=== PATIENT | female | born 1965 | race Caucasian/White ===

== ENCOUNTER 2019-04-07 10:12 | Emergency (ER) | payer BC ==
[~2019-04-07] VITALS: Ht 157.5 cm; Wt 78.0 kg
[2019-04-07 10:21] VITALS: Ht 157.5 cm; Wt 78.0 kg
[2019-04-07] MEDS ORDERED: SOD CHLORIDE 0.9% 1,000 ML IV STA (10:23)
--- NOTE | 2019-04-07 10:33 | ERD ---
ER Documentation Chief Complaint Chief Complaint LT SIDE NECK PAIN X 5 DAYS , ABD PAIN TODAY , FELT LIKE FAINTING HPI 54-year-old female who has a history of borderline hypertension who was recently asked to start hypertensive medications but has not. Patient presents with approximately 5 days of symptoms of left trapezius pain. She describes it as dull, constant and certainly worse when sitting down for a longer period of time . Patient also notes some mild numbness and tingling possibly in the left upper extremity though this is subtle. She denies any prior chest pressure, exertional symptoms shortness of breath or pleuritic pain. She denies any mid back pain or ripping or tearing sensation. However today she felt mildly nauseated and felt like fainting. She presents to the emergency room via EMS. ROS All systems reviewed and are negative except as per history of present illness. Medications Home Meds Active Scripts Ibuprofen* (Motrin*) 800 Mg Tab, 800 MG PO Q6H PRN for PAIN AND OR ELEVATED TEMP, #30 TAB Prov:DAVID PURDY MD 04/07/19 Allergies Allergies: Coded Allergies: No Known Allergy (Unverified , 04/07/19) PMhx/Soc History of Surgery: No Anesthesia Reaction: No Hx Neurological Disorder: No Hx Respiratory Disorders: No Hx Cardiac Disorders: Yes (HTN) Hx Psychiatric Problems: No Hx Miscellaneous Medical Probl: No Hx Alcohol Use: No Hx Substance Use: No Hx Tobacco Use: No Smoking Status: Never smoker FmHx Family History: No diabetes, No coronary disease Physical Exam Vitals Vital Signs Date Temp Pulse Resp B/P (MAP) Pulse Ox O2 O2 Flow FiO2 Time Delivery Rate 04/07/19 97.7 63 15 150/75 100 Room Air 11:32 (100) 04/07/19 97.8 56 18 173/76 99 10:21 (108) Physical Exam General: Well developed, well nourished, no acute distress Head: Normocephalic, atraumatic. Eyes: Pupils equally reactive, EOM intact ENT: Moist mucous membranes Neck: Supple, no lymphadenopathy Respiratory: Lungs clear bilaterally, no distress Cardiovascular: RRR, no murmurs, rubs, or gallops Abdominal: Soft, non-tender, non-distended, no peritoneal signs : Deferred MSK: No edema, no unilateral swelling, 5/5 strength, no pulse deficits Neurologic: Alert and oriented, moving all extremities, normal speech, no focal weakness, no cerebellar signs Skin: No rash Psych: Normal mood Result Diagram: 04/07/19 1024 04/07/19 1024 Results 24 hrs Laboratory Tests Test 04/07/19 10:24 White Blood Count 6.5 10^3/ul Red Blood Count 4.43 10^6/ul Hemoglobin 13.4 g/dl Hematocrit 40.0 % Mean Corpuscular Volume 90.3 fl Mean Corpuscular Hemoglobin 30.2 pg Mean Corpuscular Hemoglobin Concent 33.5 g/dl Red Cell Distribution Width 11.4 % Platelet Count 300 10^3/UL Mean Platelet Volume 8.9 fl Immature Granulocytes % 0.300 % Neutrophils % 59.6 % Lymphocytes % 27.9 % Monocytes % 4.5 % Eosinophils % 7.1 % Basophils % 0.6 % Nucleated Red Blood Cells % 0.0 /100WBC Immature Granulocytes # 0.020 10^3/ul Neutrophils # 3.9 10^3/ul Lymphocytes # 1.8 10^3/ul Monocytes # 0.3 10^3/ul Eosinophils # 0.5 10^3/ul Basophils # 0.0 10^3/ul Nucleated Red Blood Cells # 0.0 10^3/ul Prothrombin Time 12.1 Sec Prothrombin Time Ratio 0.9 INR International Normalized Ratio 0.89 Activated Partial Thromboplast Time 26.4 Sec Sodium Level 142 mmol/L Potassium Level 3.4 mmol/L Chloride Level 106 mmol/L Carbon Dioxide Level 29 mmol/L Anion Gap 7 Blood Urea Nitrogen 14 mg/dl Creatinine 0.88 mg/dl Est Glomerular Filtrat Rate mL/min > 60 mL/min Glucose Level 140 mg/dl Calcium Level 9.2 mg/dl Troponin I < 0.012 ng/ml Current Medications Medications Dose Sig/Titus Start Time Status Last (Trade) Ordered Route PRN Stop Time Admin Dose Reason Admin Sodium 1,000 ml @ Q1H STAT 04/07/19 DC 04/07/19 Chloride 1,000 mls/hr IV 10:23 10:32 04/07/19 11:22 IV Flush 10 ml STK-MED 04/07/19 DC 04/07/19 (NS 10 ml) ONCE .ROUTE 11:11 11:27 04/07/19 11:12 Sodium 100 ml @ ud STK-MED 04/07/19 DC 04/07/19 Chloride ONCE .ROUTE 11:11 11:27 04/07/19 11:12 Iohexol 100 ml @ [facility] 04/07/19 DC 04/07/19 ONCE .ROUTE 11:11 11:27 04/07/19 11:12 Procedures/MDM EKG, MONITORS, & DIAGNOSTIC IMAGING: EKG: I reviewed and interpreted a 12-lead EKG. Rhythm: Normal sinus rhythm ST Changes: No contiguous ST segment elevations T waves: No contiguous T wave inversions Impression: No evidence of acute cardiac ischemia Chest x-ray: I reviewed and interpreted a 1 view of the chest Mediastinum: No enlargement Cardiac silhouette: No cardiomegaly Airspace: Clear lung de la fuente bilaterally without evidence of pneumothorax Bones: No evidence of fracture CTA chest: IMPRESSION: 1. No evidence of aortic dissection or pulmonary embolism. 2. There is a 1.3 cm nodule in the inferior right thyroid. 3. 2.2 cm heterogeneously enhancing lesion in the right lobe of the liver that likely represents a hemangioma. 3.1 cm low density lesion more superiorly in the right lobe of the liver that likely represents a cyst. Hepatic steatosis. 4. Otherwise, no significant abnormalities are identified. LAB INTERPRETATION: I reviewed the laboratory testing and it shows no evidence of acute process MEDICAL DECISION MAKING: The patient's presentation and clinical exam seems to be very consistent with musculoskeletal etiology. The patient notes significant social stressors. The patient's symptoms are worse when sitting for prolonged periods of time. However the patient also has hypertension and mild paresthesia component. Dissection must be considered though seems unlikely. I do not believe this is consistent with acute coronary syndrome though EKG and troponin would be reasonable. Given 5 days of symptoms this should be appropriate. The patient has no exertional symptoms and better alternative diagnosis. ER COURSE: * The patient remains well-appearing and asymptomatic in the emergency room setting. CT of the chest is negative. Nonspecific nodules, outpatient follow-up is appropriate. Imaging pertinent offer her follow-up benefit * The patient is not having any chest pain. I do not believe this is consistent with anginal equivalent. No exertional symptoms. Repeat troponin is unnecessary at this time. * Return precautions were discussed and understood. The patient can be safely discharged. CONSULTATION: None DISPOSITION PLAN: The patient does not have an identifiable emergent medical condition that warrants inpatient hospitalization at this time. The patient is deemed safe for discharge with outpatient follow-up. We discussed follow up with the patient's primary care doctor within 24 to 48 hours as needed. We also discussed return to the emergency room for worsening symptoms or worsening condition. Outpatient referral: None required Discharge Medications: Motrin Departure Diagnosis: Primary Impression: Generalized weakness Additional Impression: Myalgia Condition: Stable DAVID PURDY MD Apr 07, 2019 10:33
[2019-04-07] MEDS ORDERED: SOD CHLORIDE 0.9% 100 ML ONE (11:11)
[2019-04-07] MEDS ORDERED: IOHEXOL 100 ML ONE (11:11)
[2019-04-07] MEDS ORDERED: IBUP800T48 PO (12:07)
[2019-04-07 12:20] VITALS: BP 144/82; PULSE 78; RESP 16
== END 2019-04-07 12:20 | disposition home or self-care (01) ==
LOC: E/R 10:12
DX: M79.18 Myalgia, other site (principal); R40.2142 Coma scale, eyes open, spontaneous, at arrival to emergency department; R40.2362 Coma scale, best motor response, obeys commands, at arrival to emergency department; R40.2252 Coma scale, best verbal response, oriented, at arrival to emergency department; I10 Essential (primary) hypertension
CPT/HCPCS: 36415; 71045; 71275; 80048; 84484; 85025; 85610; 85730; 93005; J7030; Q9967; Z7502; Z7610